=== PATIENT | female | born 1955 | race Caucasian/White ===

== ENCOUNTER 2024-07-29 16:11 | Inpatient (IN) | payer OTHER, BC ==
[2024-07-29 17:05] VITALS: BMI 24.1
[2024-07-29] MEDS ORDERED: IBUPROFEN 400 MG TABLET (FP) PO PRN (17:26)
[2024-07-29] MEDS ORDERED: LOPERAMIDE HCL 2 MG CAPSULE PO PRN (17:26)
[2024-07-29] MEDS ORDERED: BENZOCAINE/MENTHOL (CHLORASEPTIC ) LOZENGE MM PRN (17:26)
[2024-07-29] MEDS ORDERED: guaiFENesin 600 MG TABLET.ER (FP) PO PRN (17:26)
[2024-07-29] MEDS ORDERED: NALOXONE (NARCAN) HCL 4 MG/0.1 ML SPRAY NS PRN (17:26)
[2024-07-29] MEDS ORDERED: POLYETHYLENE GLYCOL (HEALTHYLAX) 3350 17 GM PACKET PO PRN (17:26)
[2024-07-29] MEDS ORDERED: BENZONATATE 200 MG CAPSULE PO PRN (17:26)
[2024-07-29] MEDS: MELATONIN 5 MG TABLETS PO SCH (22:15)
[2024-07-29] MEDS: THIAMINE 100 MG TABLET PO SCH (22:15)
[2024-07-29] MEDS ORDERED: TUBERCULIN PPD 5 TU/0.1ML VIAL ID ONE (22:16)
[2024-07-29] MEDS: TUBERCULIN PPD 5 TU/0.1ML SYRINGE (IN PATIENT USE ONLY) ID ONE (22:17)
[2024-07-30] MEDS: PRENATAL VITAMINS W/ FOLIC ACID TABLET (FP) PO SCH (09:55)
[2024-07-30] MEDS: amLODIPine BESYLATE 10 MG TABLET (FP) PO SCH (09:56)
[2024-07-30] MEDS: hydrOXYzine PAMOATE 25 MG CAPSULE (FP) PO PRN (09:56)
[2024-07-30] MEDS ORDERED: DOXYCYCLINE HYCLATE 100 MG CAPSULE PO SCH (10:00)
[2024-07-30] MEDS: metoPROLOL SUCCINATE 25 MG TAB.SR.24H (FP) PO SCH (11:11)
[2024-07-30] MEDS: DOXYCYCLINE HYCLATE 100 MG TABLET PO SCH (11:11)
[2024-07-30 12:27] LABS: HEMATOCRIT 32.1 % (34.1-44.9); HEMOGLOBIN 10.6 g/dL (11.2-15.7); MEAN CELL VOLUME 91.2 fl (79.4-94.8); PLATELET COUNT 159 x10^3/uL (182-369); RDW 12.8 % (12.4-16.4)
[2024-07-30 12:28] LABS: POTASSIUM 3.7 mmol/L (3.5-5.1)
[2024-07-30 12:31] LABS: ALBUMIN 3.2 g/dl (3.4-5.0); BLOOD UREA NITROGEN 18.2 mg/dL (7-18)
[2024-07-30 12:34] LABS: CREATININE 0.5 mg/dL (0.55-1.3)
[2024-07-30 12:36] LABS: BILIRUBIN,TOTAL 0.5 mg/dL (0.2-1); TOT PROT 6.2 g/dl (6.4-8.2)
[2024-07-30 12:50] LABS: CALCIUM 9.1 mg/dL (8.5-10.1)
[2024-07-30] MEDS: GABAPENTIN 100 MG CAPSULE PO SCH (14:27)
[2024-07-31] MEDS: MAG HYDROX/AL HYDROX/SIMETH 30 ML UNIT-DOSE CUP PO PRN (09:46)
[2024-07-31 12:10] LABS: PH,URINE 6.5 (5.0-8.0); URINE APPEARANCE CLEAR; URINE BILIRUBIN NEGATIVE (NEGATIVE); URINE COLOR YELLOW; URINE GLUCOSE (UA) NEGATIVE (NEGATIVE); URINE KETONE NEGATIVE (NEGATIVE); URINE LEUK ESTERASE NEGATIVE (NEGATIVE); URINE NITRITE NEGATIVE (NEGATIVE); URINE PROTEIN NEGATIVE (NEGATIVE); URINE UROBILINOGEN 0.2 mg/dL (0.2-1.0)
[2024-07-31] MEDS ORDERED: MELATONIN 5 MG TABLETS PO SCH (13:50)
[2024-07-31] MEDS: ACETAMINOPHEN 325 MG TABLET (FP) PO PRN (14:47)
[2024-07-31] MEDS: NALTREXONE HCL 50 MG TABLET PO ONE (14:47)
[2024-07-31] MEDS ORDERED: INSULIN ASPART SLIDING SCALE (NOVOLOG) 1 VIAL SQ SCH (16:30)
[2024-07-31] MEDS: CLINDAMYCIN PHOSPHATE 1% TOPICAL GEL 30 GM TUBE TP SCH (17:15)
[2024-07-31] MEDS: BACLOFEN 10 MG TABLET (FP) PO SCH (17:16)
[2024-07-31] MEDS: CALAMINE 8% TOPICAL LOTION 177 ML BOTTLE TP PRN (20:00)
[2024-07-31] MEDS: DOCUSATE SODIUM 100 MG CAPSULE (FP) PO SCH (21:19)
[2024-07-31] MEDS: MELATONIN 5 MG TABLETS PO SCH (21:19)
[2024-08-01] MEDS: NALTREXONE HCL 50 MG TABLET PO SCH (10:11)
[2024-08-04] MEDS: IBUPROFEN 600 MG TABLET (FP) PO PRN (21:42)
[2024-08-05] MEDS: INSULIN ASPART SLIDING SCALE (NOVOLOG) 1 VIAL SQ SCH (17:01)
[2024-08-05] MEDS: MAGNESIUM HYDROX 2400MG/30ML ORAL SUSPENSION 30 ML CUP PO PRN (21:55)
[2024-08-06] MEDS: GABAPENTIN 100 MG CAPSULE PO ONE (14:24)
[2024-08-06] MEDS: LIDOCAINE 4% PATCH TP SCH (15:44)
[2024-08-06] MEDS: hydrOXYzine PAMOATE 25 MG CAPSULE (FP) PO PRN (17:34)
[2024-08-06] MEDS: LIDOCAINE PATCH REMOVAL MC SCH (21:20)
[2024-08-06] MEDS: GABAPENTIN 100 MG CAPSULE PO SCH (21:20)
[2024-08-08] MEDS: amLODIPine BESYLATE 10 MG TABLET (FP) PO SCH (06:46)
[2024-08-09] MEDS: BACLOFEN 10 MG TABLET (FP) PO SCH (17:04)
[2024-08-09] MEDS: HYDROCORTISONE 1% TOPICAL CREAM 30 GM TUBE TP PRN (22:09)
[2024-08-10] MEDS: GABAPENTIN 300 MG CAPSULE PO SCH (14:06)
[2024-08-17 06:34] VITALS: RESP 16
[2024-08-19 07:02] VITALS: BP 146/76; PULSE 58; TEMP 97
== END 2024-08-19 10:45 | disposition home or self-care (01) | DRG 895 ==
LOC: YASAS 16:11 → Y5N 20:52
PROVIDERS: ADMIT Psychiatry & Neurology Pain Medicine; ATTEND Psychiatry & Neurology Pain Medicine
PROC: HZ42ZZZ Group Counseling for Substance Abuse Treatment, Cognitive-Behavioral (ICD-10-PCS; principal; 2024-07-29)
DX: F10.20 Alcohol dependence, uncomplicated (principal); F10.280 Alcohol dependence with alcohol-induced anxiety disorder; F41.9 Anxiety disorder, unspecified; G47.00 Insomnia, unspecified; I10 Essential (primary) hypertension; E11.9 Type 2 diabetes mellitus without complications; L71.8 Other rosacea; M62.838 Other muscle spasm
CPT/HCPCS: 36415; 80053; 80305; 80307; 81003; 82140; 82962; 83036; 85027; 86780; 87811; 93005; 93010; J0475